=== PATIENT | female | born 1935 | race Two or more races ===

== ENCOUNTER 2016-06-17 16:00 | Emergency (ER) | payer MEDICAID, OTHER ==
[~2016-06-17] VITALS: Ht 154.9 cm; Wt 63.5 kg
[~2016-06-17 16:00] MED LIST: AML5T PO; ASPI81CH43 PO; ATOR20TA50 PO; CLO01T PO; ISO60SRT PO; LIS10T PO; MAGN400T23 PO; METF-312 PO; OMEP20CA5 PO; SITA100T7 PO; SUCR1TAB36 PO; TICA90TA PO
[2016-06-17 17:18] LABS: Albumin 3.7 g/dL (3.4-5.0); BUN/Creatinine Ratio 28.9; Bilirubin, Total 0.2 mg/dL (0.2-1.0); Calcium 9.5 mg/dL (8.5-10.1); Potassium 3.3 mmol/L (3.5-5.1); Total Protein 8.3 g/dL (6.4-8.2)
[2016-06-17] MEDS ORDERED: LABETALOL HCL 5 MG/ML ML 20ML VIAL IV ONE (17:21)
[2016-06-17] MEDS: LABETALOL HCL 5 MG/ML 4ML SYRINGE IV ONE ×2 (17:28→17:30)
[2016-06-17 17:40] LABS: Basophils # (auto) 0.1 uL; Basophils % (auto) 0.5 % (0.0-2.0); Eosinophils # (auto) 0.2 uL; Eosinophils % (auto) 1.4 % (0.0-7.0); Hematocrit 38.8 % (36.0-46.0); Hemoglobin 12.1 g/dL (12.2-16.2); Lymphocytes # (auto) 1.7 uL; Lymphocytes % (auto) 14.8 % (10.0-50.0); Mean Corpuscular Hgb Conc. 31.2 g/dL (32.0-36.0); Mean Corpuscular Volume 92.7 fL (80.0-100.0); Monocytes # (auto) 0.7 uL; Monocytes % (auto) 5.9 % (0.0-12.0); Neutrophils # (auto) 8.7 uL; Neutrophils % (auto) 77.4 % (37.0-80.0); Platelet Count (auto) 297 10^3/uL (140-450); Red Cell Distribution Width 13.9 % (11.6-16.0); White Blood Cell 11.3 10^3/uL (4.4-10.8)
[2016-06-17 17:48] LABS: Urine Bilirubin Negative (Negative); Urine Blood TRACE /uL (Negative); Urine Glucose Normal (Normal); Urine Ketone Negative (Negative); Urine Nitrite Negative (Negative); Urine RBC 4 /hpf (0 - 4); Urine Squamous Epithelial Cell FEW /hpf (<5); Urine Urobilinogen Normal (Negative); Urine pH 6.5 (5.0-8.0)
[2016-06-17 17:49] LABS: Urine Color Straw (Yellow)
[2016-06-17 18:39] VITALS: BP 177/67
== END 2016-06-17 20:19 | disposition home or self-care (01) ==
LOC: EDUNIT# 16:00 → ER 16:05
DX: I10 Essential (primary) hypertension (principal); E87.6 Hypokalemia; E78.5 Hyperlipidemia, unspecified; I25.10 Atherosclerotic heart disease of native coronary artery without angina pectoris; E11.65 Type 2 diabetes mellitus with hyperglycemia; I25.2 Old myocardial infarction; Z88.0 Allergy status to penicillin; Z79.899 Other long term (current) drug therapy; Z79.82 Long term (current) use of aspirin; Z98.61 Coronary angioplasty status
CPT/HCPCS: 36415; 80053; 81001; 83735; 84484; 85025; 93005; 94761; 96374; 99285; J7030

== ENCOUNTER 2017-03-11 22:55 | Emergency (ER) | payer OTHER, MEDICAID ==
[~2017-03-11] VITALS: Ht 162.6 cm; Wt 68.0 kg
[~2017-03-11 22:55] MED LIST changes: -METF-312 PO; +METF-370 PO; -OMEP20CA5 PO; +OMEP20CA74 PO
[2017-03-11] MEDS ORDERED: cloNIDine HCL 0.1 MG TAB ONE (23:15)
[2017-03-12 00:20] VITALS: BP 127/86
[2017-03-12 00:21] LABS: Basophils # (auto) 0.1 uL; Basophils % (auto) 0.8 % (0.0-2.0); Eosinophils # (auto) 0.4 uL; Eosinophils % (auto) 4.1 % (0.0-7.0); Hematocrit 31.8 % (36.0-46.0); Hemoglobin 10.6 g/dL (12.2-16.2); Lymphocytes # (auto) 2.4 uL; Lymphocytes % (auto) 23.8 % (10.0-50.0); Mean Corpuscular Hemoglobin 31.1 pg (28.0-32.0); Mean Corpuscular Hgb Conc. 33.4 g/dL (32.0-36.0); Mean Corpuscular Volume 93.3 fL (80.0-100.0); Mean Platelet Volume 8.4 fL (6.9-10.8); Monocytes # (auto) 0.8 uL; Monocytes % (auto) 7.6 % (0.0-12.0); Neutrophils # (auto) 6.3 uL; Neutrophils % (auto) 63.7 % (37.0-80.0); Platelet Count (auto) 231 10^3/uL (140-450); Red Cell Distribution Width 14.1 % (11.8-14.3); White Blood Cell 9.9 10^3/uL (4.4-10.8)
[2017-03-12 00:23] LABS: Albumin 3.3 g/dL (3.4-5.0); Anion Gap 11 (5-15); Aspartate Aminotransferase 14 U/L (15-37); Blood Urea Nitrogen 32 mg/dL (7-18); Calcium 8.8 mg/dL (8.5-10.1); Carbon Dioxide 25 mmol/L (21-32); Chloride 106 mmol/L (98-107); GFR African American 54 mL/min; GFR Non-African American 45 mL/min; Glucose 136 mg/dL (74-106); Potassium 4.1 mmol/L (3.5-5.1); Sodium 142 mmol/L (136-145)
[2017-03-12 00:28] LABS: Alkaline Phosphatase 63 U/L (45-117); Bilirubin, Total 0.1 mg/dL (0.2-1.0); Total Protein 6.8 g/dL (6.4-8.2)
[2017-03-12] MEDS ORDERED: cloNIDine HCL 0.1 MG TAB PO ONE (00:30)
[2017-03-12 00:34] LABS: INR 0.92 (0.9-1.15); Partial Thromboplastin Time 25.2 sec (22.64-33.71)
== END 2017-03-12 05:55 | disposition home or self-care (01) ==
LOC: EDBD 22:55 → ER 23:02
DX: I10 Essential (primary) hypertension (principal); R42 Dizziness and giddiness; I25.10 Atherosclerotic heart disease of native coronary artery without angina pectoris; E11.9 Type 2 diabetes mellitus without complications; I25.2 Old myocardial infarction
CPT/HCPCS: 36415; 70450; 71010; 80053; 84484; 85025; 85610; 85730; 93005